=== PATIENT | female | born 1995 | race Caucasian/White ===

== ENCOUNTER 2018-04-29 18:17 | Emergency (ER) | payer OTHER | END 2018-04-29 22:49 | disposition home or self-care (01) | LOC: FTE 22:49 | DX: S63.502A Unspecified sprain of left wrist, initial encounter (principal); X50.3XXA Overexertion from repetitive movements, initial encounter; Y92.254 Theater (live) as the place of occurrence of the external cause | CPT/HCPCS: 73110; 73110-LT; 99283-25 ==

== ENCOUNTER 2018-10-01 00:17 | Emergency (ER) | payer SELFPAY ==
[2018-10-01] MEDS ORDERED: LIDOCAINE 1% (MDV) 10 ML INJ INJ (00:38)
[2018-10-01] MEDS: HYDROCODONE/APAP (5/325) TAB PO (00:56)
[2018-10-01] MEDS: LIDOCAINE 1%/EPI 30 ML INJ INJ (01:03)
== END 2018-10-01 02:28 | disposition home or self-care (01) ==
LOC: FTE 00:17
DX: N75.1 Abscess of Bartholin's gland (principal)
CPT/HCPCS: 56420; 99284-25